=== PATIENT | female | born 1960 | race Caucasian/White ===

== ENCOUNTER 2018-02-11 06:38 | Day surgery (SDC) | END 2018-02-11 13:06 | disposition home or self-care (01) ==

== ENCOUNTER 2019-04-09 06:55 | Day surgery (SDC) | payer OTHER ==
[~2019-04-09] VITALS: Ht 152.4 cm; Wt 69.9 kg
[~2019-04-09 06:55] MED LIST: NO MEDS.
[2019-04-09 07:36] VITALS: Ht 152.4 cm; Wt 69.9 kg
[2019-04-09 07:54] VITALS: BP 145/70; PULSE 62; RESP 18
[2019-04-09] MEDS ORDERED: FENTAnyl 50 MCG/ML VIAL ONE (09:27)
[2019-04-09] MEDS ORDERED: MIDAZOLAM 1 MG/ML 2 ML INJ ONE ×2 (09:27→09:28)
[2019-04-09 09:54] VITALS: BP 114/62; RESP 20
== END 2019-04-09 14:29 | disposition home or self-care (01) ==
LOC: GIL 06:55
PROVIDERS: ATTEND Internal Medicine Gastroenterology
DX: Z12.11 Encounter for screening for malignant neoplasm of colon (principal); K64.8 Other hemorrhoids; D12.8 Benign neoplasm of rectum
CPT/HCPCS: 45380; 88305; J2250; J3010; Z7610